=== PATIENT | male | born 1995 | race Caucasian/White ===

== ENCOUNTER 2018-03-30 18:31 | Emergency (ER) | payer OTHER ==
[2018-03-30] MEDS ORDERED: Lidocaine 1% with EPINEPHrine 1:100,000 20 ML MDV INJECT ONE (18:39)
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
--- NOTE | 2018-04-01 11:27 | CR ---
Chest: Two views of the chest were obtained. Comparison: No prior chest x-ray. Heart size and mediastinum are within normal limits. Minimal atelectasis is seen within the right middle lobe. Lungs otherwise are clear. Slight scoliosis is noted within the spine. Impression: 1. Slight atelectasis within the right middle lobe. 2. Nothing acute is otherwise seen. Diagnostic code #2
== END 2018-03-30 19:40 | disposition home or self-care (01) ==
LOC: JD.ED 18:31
DX: S21.211A Laceration without foreign body of right back wall of thorax without penetration into thoracic cavity, initial encounter (principal); V89.2XXA Person injured in unspecified motor-vehicle accident, traffic, initial encounter; F10.129 Alcohol abuse with intoxication, unspecified; Y90.6 Blood alcohol level of 120-199 mg/100 ml
CPT/HCPCS: 12002; 36415; 71046; 80053; 83690; 85025; 99284; G0480; 12001